=== PATIENT | male | born 1945 | race Caucasian/White ===

== ENCOUNTER 2022-06-18 08:21 | Emergency (ER) | payer MEDICARE ==
[2022-06-18] MEDS ORDERED: Ipratropium/Albuterol 3 ML NEB ONE (08:59)
== END 2022-06-18 10:21 | disposition home or self-care (01) ==
LOC: BURERS 08:21
DX: J02.9 Acute pharyngitis, unspecified (principal); J20.9 Acute bronchitis, unspecified
CPT/HCPCS: 71045; 87081; 87430; J7620